=== PATIENT | male | born 1990 | race Caucasian/White ===

== ENCOUNTER 2024-04-03 20:55 | Emergency (ER) | payer BC ==
--- OUTSIDE RECORDS SUMMARY | 2024-04-03 20:57 | XMS REPORT | Continuity of Care Document ---
Author Name Unknown Address [address] [facility] [address] [place] [address] [facility] thconnect Address [address] [facility] [address] [place] [address] Care Team Providers Care Java Oracle Developer Name Role Phone Nghia Rasheed Attending Clinician Unavailable NATASHA GUPTA Attending Clinician Unavailable Problems Condition Name Condition Details Condition Category Status Onset Date Resolution Date Last Treatment Date Treating Clinician Comments Source PTSD (post-trau matic stress disorder) PTSD (post-trau matic stress disorder) Problem Active [facility] Benign essential HTN Benign essential HTN Problem Active [facility] ELLIOTT (obstructi ve sleep apnea) ELLIOTT (obstructi ve sleep apnea) Problem Active [facility] Decreased testostero ne level Decreased testostero ne level Problem Active [facility] ADHD (attention deficit hyperactiv ity disorder), combined type ADHD (attention deficit hyperactiv ity disorder), combined type Problem Active [facility] Body mass index (BMI) of 45.0-49.9 in adult Body mass index (BMI) of 45.0-49.9 in adult Problem Active [facility] Hyperlipid emia Hyperlipid emia Problem Active [facility] Anxiety Anxiety Problem Active [facility] Body mass index (BMI) of 40.0-44.9 in adult Body mass index (BMI) of 40.0-44.9 in adult Problem Active [facility] BMI 39.0-39.9, adult BMI 39.0-39.9, adult Problem Active [facility] Tinea pedis of both feet Tinea pedis of both feet Problem Active [facility] Other chronic pain Other chronic pain Problem Active [facility] Hyperinsul inemia Hyperinsul inemia Problem Active [facility] Acute nasopharyn gitis [common cold] Acute nasopharyn gitis [common cold] Problem Active [facility] Influenza B Influenza B Problem Active [facility] Fever, unspecifie d fever cause Fever, unspecifie d fever cause Diagnosis Active [facility] Allergies, Adverse Reactions, Alerts Allergy Name Allergy Type Status Severity Reaction(s) Onset Date Inactive Date Treating Clinician Comments Source NO KNOWN ALLERGIE S Drug Class Active [facility] Medications Ordered Medication Name Filled Medication Name Start Date Stop Date Current Medication? Ordering Clinician Indication Dosage Frequency Signature (SIG) Comments Components Source Tamiflu Tamiflu 2018-07 00:00: 00 Yes Maida Jenkins 1 capsule [facility] Lisinopril Lisinopril 09-09 00:00: 00 Yes Maida Jenkins 1 tablet [facility] Clomid Clomid Yes Maida Jenkins take tablet [facility] Vyvanse Vyvanse Yes Maida Jenkins 1 capsule in the morning [facility] Encounters Start Date/Time End Date/Time Encounter Type Admission Type Attending [facility] Care Facility Care Department Encounter ID Source 2024-02-18 13:23:00 Outpatient Wili Nghia [facility] [id number] [facility] 2021-03-24 11:00:00 2021-03-24 11:00:00 Outpatient Bria [facility] [id number] [facility] 2020-08-24 13:50:00 2020-08-24 13:50:00 Outpatient NATASHA STEEN [facility] [id number] [facility] 2020-08-24 13:50:00 2020-08-24 13:50:00 Outpatient NATASHA STEEN [facility] [id number] [facility] 2020-07-27 14:50:00 2020-07-27 14:50:00 Outpatient NATASHA STEEN [facility] [id number] [facility] 2019-07-19 14:20:00 2019-07-19 14:20:00 [facility] [id number] [facility] 2019-07-12 10:00:00 2019-07-12 10:00:00 [facility] [id number] [facility] 2019-07-09 16:41:00 2019-07-09 16:41:00 [facility] [id number] [facility] 2019-05-25 09:10:00 2019-05-25 09:10:00 [facility] [id number] [facility] 2019-05-21 08:15:00 2019-05-21 08:15:00 [facility] [id number] [facility] 2019-03-04 16:00:00 2019-03-04 16:00:00 [facility] [id number] [facility] 2018-12-02 08:00:00 2018-12-02 08:00:00 [facility] [id number] [facility] 2018-11-02 13:55:00 2018-11-02 13:55:00 [facility] [id number] [facility] 2018-10-20 15:00:00 2018-10-20 15:00:00 [facility] [id number] [facility] 2018-09-15 15:49:00 2018-09-15 15:49:00 [facility] [id number] [facility] 2018-09-09 13:30:00 2018-09-09 13:30:00 Outpatient Berta handley [facility] Gu[facility] [id number] [facility]
[2024-04-03] MEDS ORDERED: HYDROCODONE/APAP 7.5/325 MG TAB ONE (21:32)
--- NOTE | 2024-04-03 22:41 | RAD REPORT ---
EXAM DESCRIPTION: RAD - Foot Left 3 View - 04/03/2024 10:07 pm CLINICAL HISTORY: PAIN COMPARISON: No comparisons TECHNIQUE: Left foot, 3 views. FINDINGS: No fracture, dislocation or periosteal reaction. Dorsal soft tissue swelling. No air or foreign body in the soft tissues. IMPRESSION: Dorsal soft tissue swelling. No acute osseus abnormality.
--- NOTE | 2024-04-03 22:52 | EDPHYS ---
Physician Documentation [facility] Name: David Tineo Age: 33 yrs Sex: Male : 1990 Arrival Date: 04/03/2024 Time: 20:55 Bed 7 Private MD: ED Physician Gerald Pabon HPI: 04/04 00:07 This 33 yrs old Male presents to ER via Wheelchair with complaints of Foot Injury. sb4 00:07 The patient presents with an injury, pain, that is acute. The complaints affect the sb4 medial aspect of left foot and dorsum of left foot. Context: The problem was sustained at home, resulted from a mis-step, the patient can partially bear weight, must have assistance, Problem is a result from a previous injury: No. Onset: The symptoms/episode began/occurred just prior to arrival. Modifying factors: The symptoms are alleviated by remaining still, the symptoms are aggravated by weight bearing. Associated signs and symptoms: The patient has no apparent associated signs or symptoms. Treatment prior to arrival includes: no previous treatment. Historical: - Allergies: 04/03 21:08 No Known Allergies; tm6 - PMHx: 21:08 Hypertensive disorder; tm6 21:08 ADHD; tm6 - PSHx: 21:08 Appendectomy; tm6 - Immunization history:: Client reports receiving the 2nd dose of the Covid vaccine. - Infectious Disease History:: Denies. - Social history:: Smoking status: Patient denies any tobacco usage or history of. Patient uses alcohol, but reports only rare drinking. ROS: 04/04 00:07 Constitutional: Negative for fever, chills, and weight loss, sb4 MS/extremity: Positive for injury or acute deformity, decreased range of motion, pain, swelling, tenderness, of the left foot, All other systems are negative, Exam: 00:44 Constitutional: This is a well developed, well nourished patient who is awake, alert, sb4 and in no acute distress. Head/Face: Normocephalic, atraumatic. Eyes: Extra-ocular motions intact. Periorbital areas with no swelling, redness, or edema. ENT: Mucous membranes moist. 00:44 Musculoskeletal/extremity: swelling noted to dorsum of left foot. moderate tenderness with palpation. no deformity noted. pulses intact. normal ROM. Vital Signs: 04/03 21:05 Pulse 84; Resp 20; Temp 97.2(TE); Pulse Ox 100% on R/A; Weight 149.69 kg; Height 5 ft. tm6 11 in. ; Pain 6/10; 21:07 BP 164 / 79; tm6 21:53 BP 149 / 78; Pulse 67; Resp 16; Pulse Ox 100% ; jj7 23:00 BP 146 / 83; Pulse 79; Resp 16; Temp 98.1; Pulse Ox 98% ; Pain 1/10; jj7 21:05 Body Mass Index 46.03 (149.69 kg, 180.34 cm) tm6 21:05 Pain Scale: Adult tm6 23:00 Pain Scale: Adult jj7 MDM: 21:06 Patient medically screened. sb4 04/04 00:44 Data reviewed: vital signs, nurses notes, radiologic studies, and as a result, I will sb4 discharge patient. Counseling: I had a detailed discussion with the patient and/or guardian regarding the historical points, exam findings, and any diagnostic results supporting the discharge/admit diagnosis, radiology results, to return to the emergency department if symptoms worsen or persist or if there are any questions or concerns that arise at home. 04/03 21:27 Order name: Foot Left 3 View XRAY; Complete Time: 22:42 sb4 04/03 21:27 Order name: Ice pack; Complete Time: 21:34 sb4 04/03 22:51 Order name: Orthopedic shoe; Complete Time: 23:21 sb4 04/03 22:51 Order name: Crutches; Complete Time: 23:21 sb4 Administered Medications: 04/03 21:34 Drug: Hydrocodone-Acetaminophen PO (7.5 mg-325 mg) 1 tabs PO once Route: PO; tm6 23:21 Follow up: Response: Marked relief of symptoms; Pain is decreased jj7 Disposition: 04/04 01:19 Co-signature as Attending Physician, Gerald Pabon MD I reviewed the patient's care rn provided by the Advanced Practice Provider and agree with the diagnosis and treatment plan. Disposition Summary: 04/03/24 22:51 Discharge Ordered Notes: Location: Home sb4 Problem: new sb4 Symptoms: have improved sb4 Condition: Stable sb4 Diagnosis - Contusion of left foot sb4 - Other sprain of left foot sb4 Followup: sb4 - With: Woo, Toribio, MD - When: As needed - Reason: Recheck today's complaints, Re-evaluation by your physician Discharge Instructions: - Discharge Summary Sheet sb4 - Foot Contusion sb4 - Foot Sprain sb4 Forms: - Patient Portal Instructions sb4 - Leadership Thank You Letter sb4 Signatures: Dispatcher [employer] Gerald Claudoi MD MD rn Brown, Sophia, PA-C PA-C sb4 Shahida Burrell RN RN tm6 Jesisca Sanchez RN jj7
--- NOTE | 2024-04-03 22:52 | ER ---
Nurse's Notes [facility] Name: David Tineo Age: 33 yrs Sex: Male : 1990 Arrival Date: 04/03/2024 Time: 20:55 Bed 7 Private MD: Diagnosis: Contusion of left foot;Other sprain of left foot Presentation: 04/03 21:05 Chief complaint: Patient states: fell on tile floor at home while practicing soccer tm6 with his 4 year old. About 1.5 hours ago. Landed oddly on left foot and experiencing 6/10 pain. Coronavirus screen: Vaccine status:. 21:05 Method Of Arrival: Wheelchair tm6 21:07 Coronavirus screen: Vaccine status: Patient reports receiving the 2nd dose of the covid tm6 vaccine. Ebola Screen: Patient negative for fever greater than or equal to 101.5 degrees Fahrenheit, and additional compatible Ebola Virus Disease symptoms Patient denies exposure to infectious person. Patient denies travel to an Ebola-affected area in the 21 days before illness onset. No symptoms or risks identified at this time. Initial Sepsis Screen: Does the patient meet any 2 criteria? No. Patient's initial sepsis screen is negative. Does the patient have a suspected source of infection? No. Patient's initial sepsis screen is negative. Risk Assessment: Do you want to hurt yourself or someone else? Patient reports no desire to harm self or others. Onset of symptoms was April 03, 2024. 21:07 Acuity: GERMAN 4 tm6 Triage Assessment: 21:08 General: Appears uncomfortable, Behavior is calm, cooperative. Pain: Complains of pain tm6 in left foot Pain currently is 6 out of 10 on a pain scale. Quality of pain is described as tingling, throbbing, Pain began 1 hour ago. EENT: No signs and/or symptoms were reported regarding the EENT system. Neuro: Level of Consciousness is awake, alert, obeys commands, Oriented to person, place, time, situation. Cardiovascular: Patient's skin is warm and dry. Respiratory: Airway is patent Respiratory effort is even, unlabored, Respiratory pattern is regular, symmetrical. GI: No signs and/or symptoms were reported involving the gastrointestinal system. Abdomen is round. : No signs and/or symptoms were reported regarding the genitourinary system. Derm: No signs and/or symptoms reported regarding the dermatologic system. Musculoskeletal: Reports pain in left foot since 1.5 hours ago when he fell. Pain is 6 out of 10 on a pain scale. Historical: - Allergies: 21:08 No Known Allergies; tm6 - PMHx: 21:08 Hypertensive disorder; tm6 21:08 ADHD; tm6 - PSHx: 21:08 Appendectomy; tm6 - Immunization history:: Client reports receiving the 2nd dose of the Covid vaccine. - Infectious Disease History:: Denies. - Social history:: Smoking status: Patient denies any tobacco usage or history of. Patient uses alcohol, but reports only rare drinking. Screenin:57 [facility] ED Fall Risk Assessment (Adult) History of falling in the last 3 months, jj7 including since admission Yes- single mechanical fall (1 pt) Confusion or Disorientation No (0 pts) Intoxicated or Sedated No (0 pts) Impaired Gait No (0 pts) Mobility Assist Device Used No (0 pt) Altered Elimination No (0 pt) Score/Fall Risk Level 0 - 2 = Low Risk Oriented to surroundings, Maintained a safe environment, Educated pt \T\ family on fall prevention, incl call for assistance when getting out of bed, Assessed \T\ reinforced patient's understanding of fall precautions. Abuse screen: Denies threats or abuse. Nutritional screening: No deficits noted. Tuberculosis screening: No symptoms or risk factors identified. Assessment: 21:53 General: Appears in no apparent distress. comfortable, Behavior is calm, cooperative, jj7 appropriate for age. Pain: Complains of pain in left foot. Musculoskeletal: Swelling present in left foot Reports pain in left foot. Vital Signs: 21:05 Pulse 84; Resp 20; Temp 97.2(TE); Pulse Ox 100% on R/A; Weight 149.69 kg; Height 5 ft. tm6 11 in. ; Pain 6/10; 21:07 BP 164 / 79; tm6 21:53 BP 149 / 78; Pulse 67; Resp 16; Pulse Ox 100% ; jj7 23:00 BP 146 / 83; Pulse 79; Resp 16; Temp 98.1; Pulse Ox 98% ; Pain 1/10; jj7 21:05 Body Mass Index 46.03 (149.69 kg, 180.34 cm) tm6 21:05 Pain Scale: Adult tm6 23:00 Pain Scale: Adult jj7 ED Course: 20:58 Patient arrived in ED. jj6 20:59 Trang Tavares PA-C is PHCP. sb4 20:59 Gerald Pabon MD is Attending Physician. sb4 21:08 Triage completed. tm6 21:08 Arm band placed on left wrist. tm6 21:57 Patient has correct armband on for positive identification. Bed in low position. Call jj7 light in reach. Side rails up X 1. Adult w/ patient. Provided Education on: USE OF CALL MCCARTY. Client placed on continuous cardiac and pulse oximetry monitoring. NIBP monitoring applied. 22:08 Foot Left 3 View XRAY In Process Unspecified. EDMS 22:51 Toribio Woo MD is Referral Physician. sb4 23:21 No provider procedures requiring assistance completed. Patient did not have IV access jj7 during this emergency room visit. 23:22 Crutch training done. Ortho shoe applied to left foot. jj7 Administered Medications: 21:34 Drug: Hydrocodone-Acetaminophen PO (7.5 mg-325 mg) 1 tabs PO once Route: PO; tm6 23:21 Follow up: Response: Marked relief of symptoms; Pain is decreased jj7 Medication: 23:22 VIS not applicable for this client. jj7 Outcome: 22:51 Discharge ordered by . sb4 23:21 Discharged to home ambulatory, with crutches, with family, jj7 23:21 Condition: improved 23:21 Discharge instructions given to patient, Instructed on discharge instructions, Demonstrated understanding of instructions, 23:22 Patient left the ED. jj7 Signatures: Dispatcher [employer] EDMS Jessa Hernandez jj6 Jessica Sanchez RN RN jj7 Trang Tavares PA-C PA-C sb4 Shahida Burrell RN RN tm6
[2024-04-03 23:30] VITALS: BP 146/83; TEMP 98.1; O2SAT 98
== END 2024-04-03 23:22 | disposition home or self-care (01) ==
LOC: ER 20:55
DX: S93.692A Other sprain of left foot, initial encounter (principal)
CPT/HCPCS: 99284